=== PATIENT | female | born 2000 | race Caucasian/White ===

== ENCOUNTER 2023-03-05 02:50 | Inpatient (IN) | payer OTHER ==
[2023-03-05] MEDS ORDERED: AMPICILLIN SODIUM 2 GM VIAL ONE (03:30)
[2023-03-05] MEDS: ELECTROLYTE-148 SOLN 1,000 ML IV SCH ×2 (03:40→20:00)
[2023-03-05] MEDS ORDERED: AMPICILLIN - 2 GM in SODIUM CHLORIDE 100 ML IVPB ONE (03:50)
[2023-03-05 04:42] LABS: BASO % 0.3 % (0-2.0); EOS % 0.9 % (0-4.5); HEMOGLOBIN 13.1 GM/dL (10.7-15.3); MCH 31.7 pg (25.7-33.7); MCHC 34.5 g/dl (32.0-36.0); MEAN CELL VOLUME 91.9 fl (80-96); MEAN PLT VOLUME 9.3 fl (7.5-11.1); NEUT % 66.8 % (42.8-82.8); PLATELET COUNT 193 10^3/uL (134-434); RBC 4.14 M/mm3 (3.60-5.2); RDW 14.4 % (11.6-15.6); WHITE BLOOD COUNT 10.1 K/mm3 (4.0-10.0)
[2023-03-05 04:43] LABS: INR 0.94 (0.83-1.09); PROTHROMBIN TIME (PATIENT) 10.9 SEC (9.7-13.0)
[2023-03-05 04:46] LABS: ACTIVATED PTT 23.9 SECONDS (25.2-36.5)
[2023-03-05 05:03] LABS: CALCIUM 9.3 mg/dL (8.5-10.1)
[2023-03-05 05:04] VITALS: BMI 32.7
[2023-03-05 05:07] LABS: CREATININE 0.5 mg/dL (0.55-1.3)
[2023-03-05] MEDS ORDERED: ELECTROLYTE-148 SOLN 1,000 ML IV SCH (07:45)
[2023-03-05] MEDS ORDERED: AMPICILLIN SODIUM 1 GM VIAL ONE ×5 (07:58→23:05)
[2023-03-05] MEDS: AMPICILLIN - 1 GM in SODIUM CHLORIDE 100 ML IVPB SCH ×4 (08:05→20:00)
[2023-03-05] MEDS ORDERED: OXYTOCIN 30 UNITS in 0.9% NS 30 UNIT/500 ML INFUS.BAG IVPB SCH (08:45)
[2023-03-05] MEDS ORDERED: OXYTOCIN 30 UNITS in 0.9% NS 30 UNIT/500 ML INFUS.BAG IVPB ONE (09:00)
[2023-03-05] MEDS ORDERED: FENTANYL/BUPIVACAINE/NS/PF - PCEA - 50 ML DISP.SYRIN EP ONE ×4 (13:46→23:19)
[2023-03-05] MEDS ORDERED: LIDO 2%/EPI 1:200000 PRESRVFRE (20 ML SDVIAL) ONE (13:47)
[2023-03-05] MEDS ORDERED: BUPIVACAINE HCL/PF 0.25% (2.5MG/ML) 10 ML VIAL ONE ×3 (13:47→23:23)
[2023-03-05] MEDS: FENTANYL/BUPIVACAINE/NS/PF - PCEA - 50 ML DISP.SYRIN EP SCH ×3 (14:04→23:00)
[2023-03-05] MEDS ORDERED: NALOXONE HCL 0.4 MG/ML VIAL IVPUSH PRN (14:19)
[2023-03-05] MEDS ORDERED: FENTANYL CITRATE/PF 50 MCG/ML VIAL ONE (23:26)
[2023-03-06] MEDS: AMPICILLIN - 1 GM in SODIUM CHLORIDE 100 ML IVPB SCH
[2023-03-06] MEDS ORDERED: FENTANYL/BUPIVACAINE/NS/PF - PCEA - 50 ML DISP.SYRIN EP ONE (02:05)
[2023-03-06] MEDS: FENTANYL/BUPIVACAINE/NS/PF - PCEA - 50 ML DISP.SYRIN EP SCH (02:10)
[2023-03-06] MEDS ORDERED: LIDOCAINE HCL 1% PRESERVATIVE FREE - 30ML VIAL ONE (02:35)
[2023-03-06] MEDS ORDERED: OXYTOCIN 20 UNITS in 0.9% NS 20 UNIT/1,000 ML INFUS.BAG IV ONE (02:35)
[2023-03-06] MEDS ORDERED: BISACODYL 10 MG SUPP.RECT RC PRN (04:51)
[2023-03-06] MEDS ORDERED: ACETAMINOPHEN 325 MG TABLET (FP) PO PRN (04:51)
[2023-03-06] MEDS ORDERED: BENZOCAINE 20% 57 GM BOTTLE TP PRN (04:51)
[2023-03-06] MEDS ORDERED: METHYLERGONOVINE MALEATE 0.2 MG/1 ML AMP IM PRN (04:51)
[2023-03-06] MEDS ORDERED: BENZOCAINE 28 GM HEMORRHOIDAL OINTMENT TP PRN (04:51)
[2023-03-06] MEDS ORDERED: WITCH HAZEL 50% (TUCKS) 40 PAD/JAR PAD TP PRN (04:51)
[2023-03-06] MEDS ORDERED: OXYTOCIN 20 UNITS in 0.9% NS 20 UNIT/1,000 ML INFUS.BAG IV SCH (05:00)
[2023-03-06] MEDS: IBUPROFEN 600 MG TABLET (FP) PO PRN ×2 (09:20→23:04)
[2023-03-06] MEDS: PRENATAL VITAMINS W/ FOLIC ACID TABLET (FP) PO SCH (09:20)
[2023-03-06] MEDS: FERROUS SO4 325 MG TABLET (FP) PO SCH (09:20)
[2023-03-07 07:39] LABS: BASO % 0.2 % (0-2.0); EOS % 1.5 % (0-4.5); HEMATOCRIT 29.6 % (32.4-45.2); HEMOGLOBIN 10.2 GM/dL (10.7-15.3); LYMPH % 25.6 % (8-40); MCH 31.9 pg (25.7-33.7); MCHC 34.5 g/dl (32.0-36.0); MEAN CELL VOLUME 92.6 fl (80-96); MEAN PLT VOLUME 8.9 fl (7.5-11.1); MONO % 6.8 % (3.8-10.2); NEUT % 65.9 % (42.8-82.8); PLATELET COUNT 147 10^3/uL (134-434); RDW 14.2 % (11.6-15.6); WHITE BLOOD COUNT 13.6 K/mm3 (4.0-10.0)
[2023-03-07] MEDS: IBUPROFEN 600 MG TABLET (FP) PO PRN ×2 (10:27→22:29)
[2023-03-07] MEDS: FERROUS SO4 325 MG TABLET (FP) PO SCH (10:27)
[2023-03-07] MEDS: PRENATAL VITAMINS W/ FOLIC ACID TABLET (FP) PO SCH (10:27)
[2023-03-07] MEDS ORDERED: DIPHTH,PERTUSS(ACELL),TET 0.5 ML DISP.SYRIN IM ONE (10:30)
[2023-03-07] MEDS ORDERED: SENNOSIDES/DOCUSATE COMBO (SENNA PLUS) TABLET (UD) PO PRN (22:00)
[2023-03-08] MEDS: FERROUS SO4 325 MG TABLET (FP) PO SCH (10:54)
[2023-03-08] MEDS: PRENATAL VITAMINS W/ FOLIC ACID TABLET (FP) PO SCH (10:54)
[2023-03-08 16:11] VITALS: BP 142/94; PULSE 91; RESP 17; TEMP 97.5
== END 2023-03-08 16:58 | disposition home or self-care (01) | DRG 807 ==
LOC: JLDR 02:50 → J3W 03-06 08:30
PROVIDERS: ADMIT Obstetrics & Gynecology; ATTEND Obstetrics & Gynecology
PROC: 10E0XZZ Delivery of Products of Conception, External Approach (ICD-10-PCS; principal; 2023-03-06)
PROC: 0HQ9XZZ Repair Perineum Skin, External Approach (ICD-10-PCS; 2023-03-06)
DX: O70.0 First degree perineal laceration during delivery (principal); Z37.0 Single live birth; Z3A.39 39 weeks gestation of pregnancy
CPT/HCPCS: 36415; 80048; 85025; 85461; 85610; 85730; 86780; 86850; 86900; 86901; 86999; 90715; C9803-CS; U0003; U0005

== ENCOUNTER 2024-10-17 09:47 | Emergency (ER) | payer OTHER ==
[2024-10-17 09:59] VITALS: RESP 18; BMI 24.7
[2024-10-17 11:07] LABS: BASO % 0.6 % (0-2.0); EOS % 0.6 % (0-4.5); HEMATOCRIT 39.4 % (32.4-45.2); HEMOGLOBIN 12.9 GM/dL (10.7-15.3); INR 0.95 (0.83-1.09); LYMPH % 30.5 % (8-40); MCH 29.9 pg (25.7-33.7); MCHC 32.7 g/dl (32.0-36.0); MEAN CELL VOLUME 91.5 fl (80-96); MEAN PLT VOLUME 8.4 fl (7.5-11.1); MONO % 5.6 % (3.8-10.2); NEUT % 62.7 % (42.8-82.8); PLATELET COUNT 245 10^3/uL (134-434); PROTHROMBIN TIME (PATIENT) 10.9 SEC (9.7-13.0); RBC 4.31 M/mm3 (3.60-5.2); RDW 15.4 % (11.6-15.6); WHITE BLOOD COUNT 8.5 K/mm3 (4.0-10.0)
[2024-10-17 11:10] LABS: ACTIVATED PTT 25.8 SECONDS (25.2-36.5)
[2024-10-17 11:29] VITALS: TEMP 99
[2024-10-17 13:27] LABS: URINE APPEARANCE CLEAR; URINE BILIRUBIN NEGATIVE (NEGATIVE); URINE COLOR YELLOW; URINE GLUCOSE (UA) NEGATIVE (NEGATIVE); URINE KETONE NEGATIVE (NEGATIVE); URINE LEUK ESTERASE NEGATIVE (NEGATIVE); URINE NITRITE NEGATIVE (NEGATIVE); URINE PROTEIN NEGATIVE (NEGATIVE); URINE UROBILINOGEN 0.2 mg/dL (0.2-1.0)
[2024-10-17 13:36] LABS: HCG,QUALITATIVE URINE POSITIVE
[2024-10-17 14:22] VITALS: BP 132/77; PULSE 96
== END 2024-10-17 14:22 | disposition home or self-care (01) ==
LOC: JER 09:47
DX: O20.8 Other hemorrhage in early pregnancy (principal); Z3A.09 9 weeks gestation of pregnancy
CPT/HCPCS: 36415; 76817-TC; 81003; 84702; 84703; 85025; 85610; 85730; 86850; 86900; 86901; 87086; 96372; 99281-25; 99284-25; J2790